=== PATIENT | male | born 1990 | race Asian ===

== ENCOUNTER 2018-07-04 19:01 | Emergency (ER) | payer SELFPAY ==
[~2018-07-04] VITALS: Ht 172.7 cm; Wt 65.0 kg
[2018-07-04 19:04] VITALS: Ht 172.7 cm; Wt 65.0 kg
[2018-07-04 21:04] VITALS: BP 133/74
== END 2018-07-04 21:04 | disposition home or self-care (01) ==
LOC: ED 19:01
DX: S01.511A Laceration without foreign body of lip, initial encounter (principal); W21.05XA Struck by basketball, initial encounter; Y93.67 Activity, basketball; Y92.310 Basketball court as the place of occurrence of the external cause; Y99.8 Other external cause status